=== PATIENT | male | born 1940 ===

== ENCOUNTER 2022-04-02 08:38 | Day surgery (SDC) | payer MEDICARE ==
[~2022-04-02] VITALS: Ht 170.2 cm; Wt 86.0 kg
[2022-04-02] MEDS ORDERED: ATOR10 (08:51)
[2022-04-02] MEDS ORDERED: METF500 (08:51)
[2022-04-02] MEDS ORDERED: LOSA25 (08:52)
[2022-04-02] MEDS ORDERED: CENTRUM SILVER1 EAC2 (08:52)
[2022-04-02] MEDS ORDERED: GLIM2 (08:52)
[2022-04-02] MEDS ORDERED: JARDIANCE25 MG (08:52)
[2022-04-02] MEDS ORDERED: Bisoprolol Fuma10 MG (08:52)
[2022-04-02] MEDS ORDERED: B-12 COMPL1000 MCG/2 (08:53)
[2022-04-02] MEDS ORDERED: INSULANI (08:53)
[2022-04-02] MEDS ORDERED: ASPI81CH (08:53)
== END 2022-04-02 11:40 | disposition home or self-care (01) ==
LOC: ORSCSDS 08:38
PROVIDERS: Student in an Organized Health Care Education/Training Program
PROC: 0DBH8ZX Excision of Cecum, Via Natural or Artificial Opening Endoscopic, Diagnostic (ICD-10-PCS; principal; 2022-04-02 10:00)
PROC: 0DBP8ZX Excision of Rectum, Via Natural or Artificial Opening Endoscopic, Diagnostic (ICD-10-PCS; principal; 2022-04-02 10:00)
PROC: 0DBN8ZX Excision of Sigmoid Colon, Via Natural or Artificial Opening Endoscopic, Diagnostic (ICD-10-PCS; principal; 2022-04-02 10:00)
PROC: 0DBL8ZX Excision of Transverse Colon, Via Natural or Artificial Opening Endoscopic, Diagnostic (ICD-10-PCS; principal; 2022-04-02 10:00)
PROC: 0DBK8ZX Excision of Ascending Colon, Via Natural or Artificial Opening Endoscopic, Diagnostic (ICD-10-PCS; principal; 2022-04-02 10:00)
DX: Z12.11 Encounter for screening for malignant neoplasm of colon (principal); Z86.010 Personal history of colon polyps; D12.0 Benign neoplasm of cecum; D12.3 Benign neoplasm of transverse colon; D12.2 Benign neoplasm of ascending colon; D12.5 Benign neoplasm of sigmoid colon; K63.5 Polyp of colon; K62.1 Rectal polyp; K57.30 Diverticulosis of large intestine without perforation or abscess without bleeding; E11.9 Type 2 diabetes mellitus without complications; I10 Essential (primary) hypertension; Z85.46 Personal history of malignant neoplasm of prostate; Z87.891 Personal history of nicotine dependence; Z79.4 Long term (current) use of insulin; Z79.899 Other long term (current) drug therapy; Z79.84 Long term (current) use of oral hypoglycemic drugs; Z79.82 Long term (current) use of aspirin
CPT/HCPCS: 82947; 88305; J2704; J7120